=== PATIENT | male | born 1995 | race Caucasian/White ===

== ENCOUNTER 2022-07-02 04:21 | Inpatient (IN) | payer OTHER ==
[~2022-07-02] VITALS: Ht 188 cm; Wt 133.5 kg
[2022-07-02] MEDS ORDERED: IBUPROFEN 800MG TABLET PO ONE (06:30)
[2022-07-02] MEDS ORDERED: FAMOTIDINE 20MG TABLET PO ONE (06:30)
[2022-07-02 06:40] LABS: BASOPHILS % 0.3 % (0.0-2.0); EOSINOPHILS % 0.8 % (0.0-5.0); HEMATOCRIT. 42.8 % (42.0-52.0); HEMOGLOBIN. 14.3 g/dL (14.0-18.0); LYMPHOCYTES % 11.3 % (20.0-50.0); MEAN CORPUSCULAR HEMOGLOBIN 28.2 pg (28.0-32.0); MEAN PLATELET VOLUME 7.4 fl (7.4-10.4); NEUTROPHILS % 81.6 % (40.0-76.0); PLATELET 389 x1000/uL (130-400); RED CELL DISTRIBUTION WIDTH 13.2 % (11.6-14.6)
[2022-07-02 06:48] LABS: CHLORIDE 103 mEq/L (98-107)
[2022-07-02 06:50] LABS: PROTHROMBIN TIME 10.4 sec (9.6-11.0)
[2022-07-02] MEDS ORDERED: IOHEXOL-300 100 ML BOTTLE ONE (07:20)
[2022-07-02] MEDS ORDERED: METRONIDAZOLE 500 MG PREMIX 100 ML IV NR (09:00)
[2022-07-02] MEDS ORDERED: CEFTRIAXONE 1 G PREMIX 50 ML IV NR (09:00)
[2022-07-02] MEDS ORDERED: ONDANSETRON HCL 4MG/2ML INJ IV PRN (13:15)
[2022-07-02] MEDS ORDERED: CLONIDINE 0.1MG TABLET PO PRN (13:15)
[2022-07-02] MEDS ORDERED: DIPHENHYDRAMINE 50MG/ML VIAL IV PRN (13:15)
[2022-07-02] MEDS ORDERED: IPRATROPIUM/ALBUTEROL 0.5-3(2.5)MG/3ML NEB HHN PRN (13:15)
[2022-07-02] MEDS ORDERED: CEFTRIAXONE 1 G PREMIX 50 ML IV SCH (13:15)
[2022-07-02 15:20] VITALS: BP 126/81
[2022-07-02 16:00] VITALS: BP 126/81
[2022-07-02 20:00] VITALS: BP 120/70
[2022-07-02] MEDS: SODIUM CHLORIDE 0.9% 1,000 ML IV SCH (21:15)
[2022-07-03] VITALS: BP 125/85
[2022-07-03 04:00] VITALS: BP 127/85
[2022-07-03 06:54] LABS: CHLORIDE 101 mEq/L (98-107)
[2022-07-03 06:55] LABS: BASOPHILS % 0.5 % (0.0-2.0); EOSINOPHILS % 3.2 % (0.0-5.0); HEMATOCRIT. 40.5 % (42.0-52.0); HEMOGLOBIN. 13.6 g/dL (14.0-18.0); LYMPHOCYTES % 22.6 % (20.0-50.0); MEAN CORPUSCULAR HEMOGLOBIN 28.5 pg (28.0-32.0); MEAN CORPUSCULAR VOLUME 84.9 fL (80.0-94.0); MEAN PLATELET VOLUME 7.8 fl (7.4-10.4); MONOCYTES % 7.6 % (2.0-8.0); NEUTROPHILS % 66.1 % (40.0-76.0); PLATELET 348 x1000/uL (130-400); RED BLOOD CELL COUNT 4.77 mill/uL (4.7-6.1); RED CELL DISTRIBUTION WIDTH 13.1 % (11.6-14.6)
[2022-07-03 08:00] VITALS: BP 119/82
[2022-07-03] MEDS: MORPHINE SULFATE 2 MG/ML CPJ (NOT FOR IM USE) IV PRN ×3 (10:53→20:53)
[2022-07-03 12:00] VITALS: BP 127/97
[2022-07-03] MEDS: SODIUM CHLORIDE 0.9% 1,000 ML IV SCH ×2 (13:02→21:00)
[2022-07-03] MEDS ORDERED: CEFTRIAXONE 1 G PREMIX 50 ML IV SCH (13:30)
[2022-07-03] MEDS ORDERED: NALOXONE HCL 0.4MG/ML VIAL IV PRN (14:00)
[2022-07-03] MEDS: CEFTRIAXONE 1,000 MG in DEXTROSE 5% WATER 50 ML IV SCH (14:59)
[2022-07-03] MEDS: METRONIDAZOLE 500 MG PREMIX 100 ML IV SCH ×2 (15:58→21:00)
[2022-07-03 16:00] VITALS: BP 138/83
[2022-07-03 20:00] VITALS: BP 119/71
[2022-07-04] VITALS: BP 140/82
[2022-07-04 04:00] VITALS: BP 151/87
[2022-07-04] MEDS: METRONIDAZOLE 500 MG PREMIX 100 ML IV SCH ×3 (05:20→20:16)
[2022-07-04] MEDS: SODIUM CHLORIDE 0.9% 1,000 ML IV SCH ×2 (05:20→12:37)
[2022-07-04 08:00] VITALS: BP 150/97
[2022-07-04 08:23] LABS: BASOPHILS % 0.3 % (0.0-2.0); EOSINOPHILS % 0.6 % (0.0-5.0); HEMATOCRIT. 41.2 % (42.0-52.0); HEMOGLOBIN. 13.7 g/dL (14.0-18.0); LYMPHOCYTES % 14.6 % (20.0-50.0); MEAN CORPUSCULAR HEMOGLOBIN 27.9 pg (28.0-32.0); MEAN CORPUSCULAR VOLUME 84.1 fL (80.0-94.0); MEAN PLATELET VOLUME 7.9 fl (7.4-10.4); MONOCYTES % 7.7 % (2.0-8.0); NEUTROPHILS % 76.8 % (40.0-76.0); PLATELET 419 x1000/uL (130-400); RED CELL DISTRIBUTION WIDTH 12.9 % (11.6-14.6)
[2022-07-04 08:33] LABS: CHLORIDE 104 mEq/L (98-107)
[2022-07-04] MEDS: MORPHINE SULFATE 2 MG/ML CPJ (NOT FOR IM USE) IV PRN (09:41)
[2022-07-04 12:00] VITALS: BP 137/86
[2022-07-04] MEDS: CEFTRIAXONE 1,000 MG in DEXTROSE 5% WATER 50 ML IV SCH (12:36)
[2022-07-04 16:00] VITALS: BP 153/96
[2022-07-04] MEDS: HYDROMORPHONE HCL/PF 2MG/ML CPJ IV PRN (16:07)
[2022-07-04 20:00] VITALS: BP 145/84
[2022-07-05] VITALS (7 sets, daily range): BP systolic 99–161; BP diastolic 61–95
[2022-07-05] MEDS: HYDROMORPHONE HCL/PF 2MG/ML CPJ IV PRN (00:40)
[2022-07-05] MEDS: METRONIDAZOLE 500 MG PREMIX 100 ML IV SCH ×3 (05:09→21:10)
[2022-07-05] MEDS: SODIUM CHLORIDE 0.9% 1,000 ML IV SCH ×3 (05:15→21:15)
[2022-07-05 07:09] LABS: BASOPHILS % 0.3 % (0.0-2.0); EOSINOPHILS % 0.1 % (0.0-5.0); HEMATOCRIT. 41.3 % (42.0-52.0); HEMOGLOBIN. 13.6 g/dL (14.0-18.0); LYMPHOCYTES % 10.1 % (20.0-50.0); MEAN CORPUSCULAR HEMOGLOBIN 28.1 pg (28.0-32.0); MEAN CORPUSCULAR VOLUME 85.5 fL (80.0-94.0); MEAN PLATELET VOLUME 7.4 fl (7.4-10.4); MONOCYTES % 9.8 % (2.0-8.0); NEUTROPHILS % 79.7 % (40.0-76.0); PLATELET 419 x1000/uL (130-400); RED BLOOD CELL COUNT 4.83 mill/uL (4.7-6.1)
[2022-07-05 07:18] LABS: CHLORIDE 100 mEq/L (98-107)
[2022-07-05 07:25] LABS: PHOSPHORUS 2.4 mg/dL (2.5-4.9)
[2022-07-05] MEDS: CEFTRIAXONE 1,000 MG in DEXTROSE 5% WATER 50 ML IV SCH (12:26)
[2022-07-05] MEDS: ACETAMINOPHEN 325MG TABLET PO PRN (23:25)
[2022-07-06] VITALS: BP 120/80
[2022-07-06] MEDS: METRONIDAZOLE 500 MG PREMIX 100 ML IV SCH ×2 (05:10→21:04)
[2022-07-06] MEDS: SODIUM CHLORIDE 0.9% 1,000 ML IV SCH (05:42)
[2022-07-06 07:22] LABS: CHLORIDE 104 mEq/L (98-107)
[2022-07-06 07:33] LABS: BASOPHILS % 0.5 % (0.0-2.0); EOSINOPHILS % 0.8 % (0.0-5.0); HEMATOCRIT. 39.2 % (42.0-52.0); HEMOGLOBIN. 12.9 g/dL (14.0-18.0); LYMPHOCYTES % 17.7 % (20.0-50.0); MEAN CORPUSCULAR HEMOGLOBIN 28.1 pg (28.0-32.0); MEAN CORPUSCULAR VOLUME 85.1 fL (80.0-94.0); MEAN PLATELET VOLUME 7.7 fl (7.4-10.4); MONOCYTES % 10.5 % (2.0-8.0); NEUTROPHILS % 70.5 % (40.0-76.0); PLATELET 400 x1000/uL (130-400)
[2022-07-06 08:00] VITALS: BP 141/85
[2022-07-06] MEDS ORDERED: SKIN ADHESIVE 0.7 GM EA TOP ONE (08:43)
[2022-07-06] MEDS ORDERED: BUPIVACAINE HCL 0.5% (5MG/ML) 50ML ONE (08:43)
[2022-07-06] MEDS ORDERED: ROCURONIUM BROMIDE 10MG/ML VIAL 5ML IV ONE ×2 (09:34→09:35)
[2022-07-06] MEDS ORDERED: MIDAZOLAM HCL 2 MG/2 ML VIAL ONE (09:35)
[2022-07-06] MEDS ORDERED: PROPOFOL 200MG/20ML VIAL IV ONE (09:35)
[2022-07-06] MEDS ORDERED: FENTANYL CITRATE/PF 50MCG/ML 2ML VIAL ONE ×2 (09:35→10:21)
[2022-07-06] MEDS ORDERED: MORPHINE SULFATE 4 MG/ML CPJ (NOT FOR IM USE) IV PRN (10:00)
[2022-07-06] MEDS ORDERED: MORPHINE SULFATE 2 MG/ML CPJ (NOT FOR IM USE) IV PRN (10:00)
[2022-07-06] MEDS ORDERED: HYDROCODONE/ACETAMINOPHEN 5/325MG TABLET PO PRN (10:00)
[2022-07-06] MEDS ORDERED: ONDANSETRON HCL 4MG/2ML INJ IV PRN ×2 (10:00→11:30)
[2022-07-06] MEDS ORDERED: HYDROMORPHONE HCL/PF 2MG/ML CPJ ONE (10:22)
[2022-07-06] MEDS ORDERED: GLYCOPYRROLATE 0.2 MG/ML 2ML VIAL ONE (10:55)
[2022-07-06] MEDS ORDERED: NEOSTIGMINE METHYLSULFATE 1MG/ML 10 ML VIAL ONE (10:55)
[2022-07-06] MEDS ORDERED: ONDANSETRON HCL 4MG/2ML INJ ONE (10:57)
[2022-07-06] MEDS ORDERED: LIDOCAINE HCL 1% 50ML VIAL (10MG/ML) ONE (10:57)
[2022-07-06] MEDS ORDERED: HYDROMORPHONE HCL/PF 2MG/ML CPJ IV PRN (11:30)
[2022-07-06] MEDS ORDERED: MEPERIDINE HCL/PF 25MG/ML CPJ IV PRN (11:30)
[2022-07-06] MEDS ORDERED: FENTANYL CITRATE/PF 50MCG/ML 2ML VIAL IV PRN (11:30)
[2022-07-06 13:30] VITALS: BP 137/90
[2022-07-06] MEDS: CEFTRIAXONE 1,000 MG in DEXTROSE 5% WATER 50 ML IV SCH (15:23)
[2022-07-06] MEDS: DEXT 5%/0.45% NACL KCL 20MEQ/L 1,000 ML IV SCH ×2 (15:24→22:00)
[2022-07-06 16:00] VITALS: BP 138/86
[2022-07-06 20:00] VITALS: BP 132/84
[2022-07-06] MEDS: HYDROMORPHONE HCL/PF 2MG/ML CPJ IV PRN (23:40)
[2022-07-07] VITALS: BP 143/77
[2022-07-07 04:00] VITALS: BP 134/82
[2022-07-07] MEDS: METRONIDAZOLE 500 MG PREMIX 100 ML IV SCH ×3 (05:39→20:58)
[2022-07-07 07:36] LABS: CHLORIDE 101 mEq/L (98-107)
[2022-07-07 07:37] LABS: HEMATOCRIT. 41.7 % (42.0-52.0); HEMOGLOBIN. 13.5 g/dL (14.0-18.0); MEAN CORPUSCULAR HEMOGLOBIN 27.5 pg (28.0-32.0); MEAN CORPUSCULAR VOLUME 85.2 fL (80.0-94.0); MEAN PLATELET VOLUME 7.7 fl (7.4-10.4); PLATELET 447 x1000/uL (130-400); RED CELL DISTRIBUTION WIDTH 12.9 % (11.6-14.6)
[2022-07-07 08:00] VITALS: BP 136/86
[2022-07-07] MEDS: DEXT 5%/0.45% NACL KCL 20MEQ/L 1,000 ML IV SCH ×2 (08:00→18:31)
[2022-07-07 12:00] VITALS: BP 137/72
[2022-07-07] MEDS: HYDROCODONE/ACETAMINOPHEN 5/325MG TABLET PO PRN ×2 (12:24→16:37)
[2022-07-07] MEDS ORDERED: ONDA4TAB11 PO (13:00)
[2022-07-07] MEDS ORDERED: HYDR-4001 MT (13:00)
[2022-07-07 16:00] VITALS: BP 131/89
[2022-07-07] MEDS: CEFTRIAXONE 1,000 MG in DEXTROSE 5% WATER 50 ML IV SCH (16:30)
[2022-07-07 17:41] LABS: PLATELET ESTIMATE INCREASED
[2022-07-07 20:00] VITALS: BP 140/86
[2022-07-08] VITALS: BP 138/88
[2022-07-08 04:00] VITALS: BP 140/80
[2022-07-08] MEDS: DEXT 5%/0.45% NACL KCL 20MEQ/L 1,000 ML IV SCH ×2 (04:05→14:00)
[2022-07-08] MEDS: METRONIDAZOLE 500 MG PREMIX 100 ML IV SCH ×2 (04:58→14:00)
[2022-07-08] MEDS: ACETAMINOPHEN 325MG TABLET PO PRN (05:33)
[2022-07-08 08:00] VITALS: BP 143/85
[2022-07-08 12:00] VITALS: BP 130/84
[2022-07-08] MEDS: CEFTRIAXONE 1,000 MG in DEXTROSE 5% WATER 50 ML IV SCH (14:34)
[2022-07-08 16:00] VITALS: BP 159/90
[2022-07-08 17:58] LABS: BASOPHILS % 0.4 % (0.0-2.0); HEMATOCRIT. 38.4 % (42.0-52.0); HEMOGLOBIN. 12.5 g/dL (14.0-18.0); LYMPHOCYTES % 14.6 % (20.0-50.0); MEAN CORPUSCULAR HEMOGLOBIN 27.7 pg (28.0-32.0); MEAN CORPUSCULAR VOLUME 85.3 fL (80.0-94.0); MONOCYTES % 9.3 % (2.0-8.0); NEUTROPHILS % 74.7 % (40.0-76.0); PLATELET 460 x1000/uL (130-400); RED CELL DISTRIBUTION WIDTH 13.2 % (11.6-14.6)
[2022-07-08 18:39] LABS: CHLORIDE 103 mEq/L (98-107)
[2022-07-08 20:00] VITALS: BP 116/77
[2022-07-09] VITALS: BP 122/75
[2022-07-09 04:00] VITALS: BP 131/86
[2022-07-09] MEDS: DEXT 5%/0.45% NACL KCL 20MEQ/L 1,000 ML IV SCH ×2 (10:33)
[2022-07-09 12:27] VITALS: BP 130/90
== END 2022-07-09 15:40 | disposition home or self-care (01) | DRG 854 ==
LOC: ER 04:21 → 6EST 11:17 → EDBEDREQTM 11:20 → EDBEDREQ 11:20 → ENRESERV 12:26
PROVIDERS: ADMIT Internal Medicine; ATTEND Internal Medicine
PROC: 0FT44ZZ Resection of Gallbladder, Percutaneous Endoscopic Approach (ICD-10-PCS; principal; 2022-07-06)
DX: A41.9 Sepsis, unspecified organism (principal); K80.00 Calculus of gallbladder with acute cholecystitis without obstruction; Z20.822 Contact with and (suspected) exposure to COVID-19
CPT/HCPCS: 36415; 74177; 76705; 80048; 80053; 83735; 84100; 84145; 85025; 87426; 88304; 93970; 99291; C9803; J0696; J1170; J2250; J2270; J2405; J2704; J2710; J3010; J3490; J7030; J7060; Q9967